=== PATIENT | male | born 1960 | race Caucasian/White ===

== ENCOUNTER 2021-11-22 06:13 | Inpatient (IN) ==
[2021-11-22] MEDS ORDERED: Ringers Solution, Lactated 1,000 ML IVC SCH (06:45)
[2021-11-22] MEDS ORDERED: *HR* FentaNYL (PF) 100 MCG/2 ML VIAL ONE ×2 (07:20→09:00)
[2021-11-22] MEDS ORDERED: *HR* Midazolam HCl 2 MG/2 ML VIAL ONE (07:20)
[2021-11-22] MEDS ORDERED: *HR* Propofol 200 MG/20 ML VIAL IVP ONE (07:21)
[2021-11-22] MEDS ORDERED: CeFAZolin Syr 2,000MG/20 ML 2,000 MG/20 ML SYRINGE IVPB ONE (07:21)
[2021-11-22] MEDS ORDERED: EPHEDrine 50 MG/ML VIAL ONE (08:38)
[2021-11-22] MEDS ORDERED: Albumin Human 5% 12.5 GM/250 ML IV.SOLN ONE (09:01)
[2021-11-22] MEDS ORDERED: *HR* HYDROMORPHONE 2 MG/ML VIAL ONE (10:16)
[2021-11-22] MEDS ORDERED: Acetaminophen IV 1,000 MG/100 ML BAG IVPB ONE ×2 (10:17→10:25)
[2021-11-22] MEDS ORDERED: *HR* OxyCODONE Immed Rel 5 MG TABLET PO PRN (10:28)
[2021-11-22] MEDS ORDERED: Ondansetron 4 MG/2 ML VIAL IVP PRN ×2 (10:28→11:56)
[2021-11-22] MEDS ORDERED: Promethazine 6.25 MG in Water for inj. (sterile) 20 ML IVPB PRN (10:28)
[2021-11-22] MEDS: *HR* HYDROmorphone PF 0.5 MG/0.5 ML SYRINGE IVP PRN ×2 (10:38→11:02)
[2021-11-22] MEDS ORDERED: Naloxone 0.4 MG/ML INJ IVP PRN (11:56)
[2021-11-22] MEDS ORDERED: *HR* OxyCODONE Oral Soln 5 MG/5 ML UD.LIQ PO PRN (11:56)
[2021-11-22] MEDS: 0.9 % Sodium Chloride 1,000 ML IVC SCH (12:18)
[2021-11-22] MEDS: Ipratropium/Albuterol Neb 3 ML IH SCH ×4 (14:49→23:14)
[2021-11-22] MEDS: *HR* OxyCODONE Oral Soln 5 MG/5 ML UD.LIQ PO PRN ×2 (15:52→20:38)
[2021-11-22] MEDS: Nicotine 21 MG PATCH.TD24 TD SCH (15:52)
[2021-11-22] MEDS: *HR* Heparin 5,000 UNIT/ML VIAL SQ SCH ×2 (16:01→20:38)
[2021-11-22] MEDS: Diclofenac Sodium (DR) 75 MG TABLET.DR PO SCH (20:38)
[2021-11-22] MEDS: Docusate Oral Soln 100 MG/10 ML UDC PO SCH (20:38)
[2021-11-23] MEDS: 0.9 % Sodium Chloride 1,000 ML IVC SCH ×2 (02:05→15:31)
[2021-11-23] MEDS: Ipratropium/Albuterol Neb 3 ML IH SCH ×6 (04:01→22:55)
[2021-11-23 05:42] LABS: Hematocrit 39.7 % (37.5-50.1); Hemoglobin 13.3 g/dL (12.9-16.9); Mean Corpuscular HGB Conc 33.5 g/dL (31.6-35.5); Mean Corpuscular Hemoglobin 30.5 pg (28.0-33.3); Mean Corpuscular Volume 91.1 fL (83.0-100.0); Mean Platelet Volume 11.9 fL (9.4-12.4); Platelet Count 157 K/mcL (140-400); Red Blood Count 4.36 M/mcL (4.19-5.50); Red Cell Distribution Width 13.4 % (11.5-14.5); White Blood Count 12.5 K/mcL (4.3-11.1)
[2021-11-23] MEDS: *HR* OxyCODONE Oral Soln 5 MG/5 ML UD.LIQ PO PRN ×3 (05:45→15:31)
[2021-11-23] MEDS: *HR* Heparin 5,000 UNIT/ML VIAL SQ SCH ×3 (05:50→20:25)
[2021-11-23 06:03] LABS: BUN/Creatinine Ratio 14 (6-26); Blood Urea Nitrogen 15 mg/dL (8-23); Calcium 8.6 mg/dL (8.6-10.3); Carbon Dioxide 25 mEq/L (23-29); Chloride 105 mEq/L (98-107); Glucose 118 mg/dL (70-105); Magnesium 1.9 mg/dL (1.6-2.6); Osmolality,Calculated 288 (280-300); Potassium 4.3 mEq/L (3.5-5.1); Sodium 138 mEq/L (136-145); eGFR For African Americans > 60 (> 60); eGFR For Non-African Americans > 60 (> 60)
[2021-11-23] MEDS ORDERED: FLUoxetine HCl 10 MG CAPSULE PO SCH (09:00)
[2021-11-23] MEDS: Nicotine 21 MG PATCH.TD24 TD SCH (09:31)
[2021-11-23] MEDS: Pantoprazole 40 MG VIAL IVP SCH (09:32)
[2021-11-23] MEDS: BuPROPion XL (24 HR) 150 MG TABLET PO SCH (09:32)
[2021-11-23] MEDS: Diclofenac Sodium (DR) 75 MG TABLET.DR PO SCH ×2 (09:33→20:25)
[2021-11-23] MEDS: Docusate Oral Soln 100 MG/10 ML UDC PO SCH ×2 (19:27→20:25)
[2021-11-24] MEDS: Ipratropium/Albuterol Neb 3 ML IH SCH ×6 (03:43→22:56)
[2021-11-24] MEDS: *HR* Heparin 5,000 UNIT/ML VIAL SQ SCH ×3 (05:01→21:10)
[2021-11-24] MEDS: 0.9 % Sodium Chloride 1,000 ML IVC SCH ×2 (05:01→18:38)
[2021-11-24] MEDS ORDERED: Pantoprazole 40 MG VIAL IVP SCH (09:00)
[2021-11-24] MEDS: Pantoprazole 40 MG VIAL IVP SCH (09:06)
[2021-11-24] MEDS: Nicotine 21 MG PATCH.TD24 TD SCH (09:06)
[2021-11-24] MEDS: Docusate Oral Soln 100 MG/10 ML UDC PO SCH ×2 (09:06→20:17)
[2021-11-24] MEDS: Diclofenac Sodium (DR) 75 MG TABLET.DR PO SCH ×2 (09:06→20:17)
[2021-11-24] MEDS: BuPROPion XL (24 HR) 150 MG TABLET PO SCH (09:06)
[2021-11-24] MEDS: Acetaminophen 325 MG TABLET PO PRN ×2 (10:46→20:21)
[2021-11-25] MEDS: Ipratropium/Albuterol Neb 3 ML IH SCH ×6 (03:36→23:04)
[2021-11-25] MEDS: *HR* Heparin 5,000 UNIT/ML VIAL SQ SCH ×3 (06:37→20:08)
[2021-11-25] MEDS: Acetaminophen 325 MG TABLET PO PRN (06:40)
[2021-11-25] MEDS: Diclofenac Sodium (DR) 75 MG TABLET.DR PO SCH ×2 (08:53→20:08)
[2021-11-25] MEDS: Pantoprazole 40 MG VIAL IVP SCH (08:53)
[2021-11-25] MEDS: Nicotine 21 MG PATCH.TD24 TD SCH (08:53)
[2021-11-25] MEDS: 0.9 % Sodium Chloride 1,000 ML IVC SCH ×2 (08:54→20:36)
[2021-11-25] MEDS: BuPROPion XL (24 HR) 150 MG TABLET PO SCH (08:54)
[2021-11-25] MEDS: Docusate Oral Soln 100 MG/10 ML UDC PO SCH (12:06)
[2021-11-26] MEDS: Ipratropium/Albuterol Neb 3 ML IH SCH ×2 (03:34→07:43)
[2021-11-26] MEDS: *HR* Heparin 5,000 UNIT/ML VIAL SQ SCH (06:23)
[2021-11-26] MEDS: Acetaminophen 325 MG TABLET PO PRN (06:28)
[2021-11-26 07:36] VITALS: BP 120/82; PULSE 77; TEMP 98
[2021-11-26 07:46] VITALS: O2SAT 94
[2021-11-26] MEDS: BuPROPion XL (24 HR) 150 MG TABLET PO SCH (08:07)
[2021-11-26] MEDS: Diclofenac Sodium (DR) 75 MG TABLET.DR PO SCH (08:08)
[2021-11-26] MEDS: Nicotine 21 MG PATCH.TD24 TD SCH (08:08)
[2021-11-26] MEDS: Pantoprazole 40 MG VIAL IVP SCH (08:09)
== END 2021-11-26 10:55 | disposition home or self-care (01) | DRG 327 ==
LOC: SAMDAY 06:13 → 2NNU 07:26
PROVIDERS: ADMIT Thoracic Surgery (Cardiothoracic Vascular Surgery); ATTEND Thoracic Surgery (Cardiothoracic Vascular Surgery)